=== PATIENT | male | born 1990 | race Caucasian/White ===

== ENCOUNTER 2021-10-04 09:57 | Emergency (ER) | payer SELFPAY ==
[~2021-10-04] VITALS: Ht 170.2 cm; Wt 76.4 kg
--- NOTE | 2021-10-04 10:09 | NUR ---
Sherry contacted. Case # [id number]
[2021-10-04 11:57] VITALS: BP 141/92
--- NOTE | 2021-10-04 12:14 | NUR ---
IV placed. Michelle SCHNEIDER and Dr. Frey at bedside to reduce shoulder, no medications administered. Sling placed. Pt denies need for pain medication.
--- NOTE | 2021-10-04 12:55 | NUR ---
xray results verified with amanda downing Ok to discharge.
== END 2021-10-04 12:56 | disposition home or self-care (01) ==
LOC: ER 09:58
DX: S43.005A Unspecified dislocation of left shoulder joint, initial encounter (principal); Y04.8XXA Assault by other bodily force, initial encounter; Y93.89 Activity, other specified; Y92.89 Other specified places as the place of occurrence of the external cause; Y99.8 Other external cause status
CPT/HCPCS: 23650; 73030; 99284